=== PATIENT | female | born 1950 | race Caucasian/White ===

== ENCOUNTER 2022-07-24 12:57 | Emergency (ER) | payer MEDICARE ==
[~2022-07-24] VITALS: Ht 165.1 cm; Wt 81.4 kg
[~2022-07-24 12:57] MED LIST: aspirin 81mg tab.chew ONE; heparin 10,000 units/1 ML INJ ONE; heparin, porcine-25,000 units/D5-250ml premix IV ONE
[2022-07-24] MEDS ORDERED: aspirin 81mg tab.chew PO ONE (13:05)
[2022-07-24] MEDS ORDERED: nitroGLYCERIN 0.4mg/hour patch TD ONE (13:05)
[2022-07-24 13:13] LABS: BASOPHILS % (AUTO) 0.3 % (0-1); EOSINOPHILS % (AUTO) 0.1 % (0-6); HEMATOCRIT 40.6 % (35.0-45.0); HEMOGLOBIN 13.3 g/dl (12.0-16.0); LYMPHOCYTES # (AUTO) 3.1 X10'3 (1.1-4.8); LYMPHOCYTES % (AUTO) 22.4 % (21-51); MEAN CORPUSCULAR HEMOGLOBIN 28.4 PG (27.0-31.0); MEAN CORPUSCULAR HGB CONC 32.7 g/dL (33.0-36.5); MEAN CORPUSCULAR VOLUME 86.7 FL (78-98); MEAN PLATELET VOLUME 7.4 FL (7.4-10.4); MONOCYTES # (AUTO) 1.8 X10'3 (0-0.9); MONOCYTES % (AUTO) 12.8 % (2-12); NEUTROPHILS # (AUTO) 8.9 X10'3 (1.8-7.7); NEUTROPHILS % (AUTO) 64.4 % (42-75); PLATELET COUNT 246 X10'3 (140-440); RED BLOOD COUNT 4.69 X10'6 (4.20-5.60); RED CELL DISTRIBUTION WIDTH 13.9 % (11.5-14.5); WHITE BLOOD COUNT 13.9 X10'3 (4.5-11.0)
[2022-07-24] MEDS ORDERED: heparin 10,000 units/1 ML INJ IV ONE ×3 (13:15→21:10)
[2022-07-24] MEDS ORDERED: heparin 25,000 UNIT/250ml bag 250 ML IV PRN (13:15)
[2022-07-24 13:25] LABS: APTT 25 SECONDS (22-32)
[2022-07-24 13:26] LABS: ALANINE AMINOTRANSFERASE 73 U/L (12-78); ALBUMIN 3.7 G/DL (3.4-5.0); ALBUMIN/GLOBULIN RATIO 0.9 (1.1-1.5); ALKALINE PHOSPHATASE 115 IU/L (46-116); ANION GAP 9 (8-16); ASPARTATE AMINO TRANSFERASE 187 U/L (10-37); BILIRUBIN,TOTAL 0.9 MG/DL (0.1-1.0); BLOOD UREA NITROGEN 17 MG/DL (7-18); BUN/CREATININE RATIO 17.9 (6.6-38.0); CALCIUM 9.8 MG/DL (8.5-10.1); CHLORIDE 99 MMOL/L (99-107); CREATININE 0.95 MG/DL (0.40-0.90); GLUCOSE 127 MG/DL (70-104); POTASSIUM 3.6 MMOL/L (3.5-5.1); SODIUM 136 MMOL/L (135-145); TOTAL CARBON DIOXIDE 27.8 MMOL/L (24-32); TOTAL PROTEIN 7.6 G/DL (6.4-8.2); eGFR 58 ML/MIN
[2022-07-24] MEDS ORDERED: heparin 1,000 UNITS/NS 500ml 0 ML ONE (13:27)
[2022-07-24] MEDS ORDERED: fentaNYL/PF 50MCG/1 ML 2ML syringe ONE (13:27)
[2022-07-24] MEDS ORDERED: LIDOcaine 1% 30ml preserv. free vial ONE (13:27)
[2022-07-24] MEDS ORDERED: midazolam 1 mg/ML 2ml injection ONE (13:27)
[2022-07-24] MEDS ORDERED: heparin 1,000unit/ml 10ml vial 0 ML ONE (13:27)
[2022-07-24] MEDS ORDERED: iohexol 350MG/ML 100ml bottle IV ONE (13:27)
[2022-07-24 13:34] LABS: MAGNESIUM 2.5 MG/DL (1.5-2.4)
--- NOTE | 2022-07-24 13:41 | NUR ---
RN received critical lab result: Troponin 24,896. RN notified Dr. Meda and Dr. Frost.
[2022-07-24] MEDS ORDERED: potassium Cl 40MEQ/1/2NS 520ml 520 ML IV PRN (14:05)
[2022-07-24] MEDS ORDERED: magnesium Cl slow-release 64mg tablet PO PRN (14:05)
[2022-07-24] MEDS ORDERED: magnesium 4gm in 100ml NS 100 ML IV PRN (14:05)
[2022-07-24] MEDS ORDERED: morphine 2 MG/ML inj. syringe IV PRN (14:05)
[2022-07-24] MEDS ORDERED: acetaminophen 325mg tablet PO PRN (14:05)
[2022-07-24] MEDS ORDERED: potassium Cl 20 mEq SR tablet PO PRN ×2 (14:05)
[2022-07-24] MEDS ORDERED: ondansetron/PF 4mg/2ml inj IV PRN (14:05)
[2022-07-24] MEDS ORDERED: NO HOME MEDS (17:27)
[2022-07-24] MEDS ORDERED: K and/or MAG REPLACEMENT MC SCH (20:00)
[2022-07-24 20:02] LABS: APTT 39 SECONDS (22-32)
--- NOTE | 2022-07-24 20:59 | NUR ---
PAGER ID: [phone] MESSAGE: Trang Marie in ER room 5 is admitted and on HEPARIN. Pt does not have a heparin Bolus ordered, per protocol, for a PTT OF 39. Phylicia HUBER [id number]
--- NOTE | 2022-07-24 21:15 | NUR ---
Pt does not have rebolus heparin in eMAR. Per Dr. Pat, administer heparin bolus per protocol.
[2022-07-24 22:55] VITALS: BP 95/66
--- NOTE | 2022-07-25 01:33 | NUR ---
Report called to [facility]
== END 2022-07-25 16:31 | disposition short-term general hospital (02) ==
LOC: ER 12:59 → UNDOADMIN 14:04 → ED HOLD 14:04 → ER 07-25 16:31 → UNDODISIN 07-25 16:31
DX: I21.3 ST elevation (STEMI) myocardial infarction of unspecified site (principal); Z20.822 Contact with and (suspected) exposure to COVID-19; I44.2 Atrioventricular block, complete; Q21.0 Ventricular septal defect; R57.9 Shock, unspecified; R00.0 Tachycardia, unspecified; I34.0 Nonrheumatic mitral (valve) insufficiency; I50.9 Heart failure, unspecified; I25.2 Old myocardial infarction; Z88.0 Allergy status to penicillin
CPT/HCPCS: 36415; 71045; 80053; 83735; 83880; 84484; 85025; 85610; 85730; 87811; 93005; 93306; 96365; 96376; 99291; J1644; J2250; J3010; A4615; G0378; J3490; Q9967